=== PATIENT | female | born 1950 | race American Indian/Alaskan Native ===

== ENCOUNTER 2021-03-19 09:48 | Day surgery (SDC) | payer MEDICARE, MEDICAID, SELFPAY ==
--- NOTE | 2021-03-15 08:49 | MHC.SHP ---
Pre-Procedural Eval Section A The patient is an INPATIENT: No The History & Physical has been completed within 30 days and I have reviewed it.: Yes Section B Chief Complaint: cataract Plan Diagnosis/Plan: Unchanged I have reviewed the history and physical and performed a pertinent physical examination on my patient. No changes have occurred unless specified.
[2021-03-15 14:31] VITALS: BMI 29.5
--- NOTE | 2021-03-16 13:48 | HO.ANESPROP2 ---
Documented by User: Sylvie Rasheed 03/16/21 13:49 HPI - Anesthesia Eval Consult details Narrative: 71yo F for Left Cataract Extraction IOL Insertion PCP cleared No previous cataract on record [facility] Past Medical History Medical History Anxiety COVID-19 vaccine series completed Elevated cholesterol History of CVA (cerebrovascular accident) Surgical History Surgical History History of right hip replacement Hx of colonoscopy Hx of detached retina repair Hx of hysterectomy Social History Social History Smoking Status: Former smoker Are you DNR?: No Advance Directives: No Advance Directives Information Provided: No Advance Directives on File: No Meds Allergies Allergy/AdvReac Type Severity Reaction Status Date / Time codeine Allergy Severe Anaphylaxis Verified 03/19/21 10:23 Sulfa (Sulfonamide Allergy Severe Itching, Verified 03/19/21 10:23 Antibiotics) rash gabapentin Allergy Intermediate Rash Verified 03/19/21 10:23 Home Medications Medication Instructions Recorded Confirmed Last Taken Type atorvastatin 1 tab PO DAILY 03/15/21 03/15/21 Unknown History calcium carbonate-vitamin D3 1 tab PO DAILY 03/15/21 03/15/21 Unknown History [Calcium + D] escitalopram oxalate 1 tab PO DAILY 03/15/21 03/15/21 Unknown History multivitamin 1 tab PO DAILY 03/15/21 03/15/21 Unknown History Exam Exam Date and Time: March 16, 2021 1348 Height,Weight and Vital Signs: Height 5 ft 4 in Weight 78.018 kg Assessment and Plan Assessment Anesthesia Assessment: Chart Reviewed Documented by User: Nohemi Ponce 03/19/21 10:26 [facility] Past Medical History Medical History Anxiety COVID-19 vaccine series completed Elevated cholesterol History of CVA (cerebrovascular accident) Surgical History Surgical History History of right hip replacement Hx of colonoscopy Hx of detached retina repair Hx of hysterectomy Social History Social History Smoking Status: Former smoker Are you DNR?: No Advance Directives: No Advance Directives Information Provided: No Advance Directives on File: No Meds Allergies Allergy/AdvReac Type Severity Reaction Status Date / Time codeine Allergy Severe Anaphylaxis Verified 03/19/21 10:23 Sulfa (Sulfonamide Allergy Severe Itching, Verified 03/19/21 10:23 Antibiotics) rash gabapentin Allergy Intermediate Rash Verified 03/19/21 10:23 Home Medications Medication Instructions Recorded Confirmed Last Taken Type atorvastatin 1 tab PO DAILY 03/15/21 03/15/21 Unknown History calcium carbonate-vitamin D3 1 tab PO DAILY 03/15/21 03/15/21 Unknown History [Calcium + D] escitalopram oxalate 1 tab PO DAILY 03/15/21 03/15/21 Unknown History multivitamin 1 tab PO DAILY 03/15/21 03/15/21 Unknown History Exam Airway Mallampati Class: II TM Dist: >3cm Neck ROM: Full Loose/Missing/Broken Teeth: No Heart: RRR Lungs: CTA Assessment and Plan Assessment Anesthesia Assessment: Anesthesia Plan Discussed and Chart Reviewed Final Anesthetic Review NPO: Yes ASA Class: II Final Preanesthetic Review: Meds/Allgs Chart Reviewed, Consent Obtained/Reviewed and Anes Risks/Benef Reviewed Patient Risk: Low Procedure Risk: Low Anesthetic Plan Anesthetic Plan: MAC: Disposition: Standard PACU
[2021-03-19 10:30] VITALS: BP 116/67; PULSE 68; RESP 18; TEMP 36.8; O2SAT 98
[2021-03-19] MEDS: Lactated Ringers 500 ML 50 ML IV (10:44)
[2021-03-19] MEDS: Tetracaine HCl/PF 0.5% Oph Sol 4 ML DROPS 1 DROP EYE-LEFT (10:44)
[2021-03-19] MEDS: Tropicamide 1 % Ophth Sol 3 ML BTL 1 DROP EYE-LEFT ×3 (10:46→10:52)
[2021-03-19] MEDS: Phenylephrine HCL 2.5% Oph SoL 2 ML BOTTLE 1 DROP EYE-LEFT ×3 (10:48→10:54)
--- NOTE | 2021-03-19 11:19 | HO.PNOPHT ---
Ophthalmology Procedure Procedure Date of Service: 03/19/21 Ophthalmology Viscoelastic: Healon Duet Dual Pack Pro Ophthalmology Lenses: TECJOANNA [id number] (24.5) Procedure Notes: PREOPERATIVE DIAGNOSIS: Decreased visual acuity left eye secondary to cataract POSTOPERATIVE DIAGNOSIS: Same PROCEDURE: Left cataract extraction with intraocular lens insertion SURGEON: Kaleb Melchor M.D. ANESTHESIA: Topical/MAC ESTIMATED BLOOD LOSS: None COMPLICATIONS: None After obtaining informed consent, the patient was brought to the operation room suite and placed in the supine position. After adequate sedation per anesthesia, topical drops of Tetracaine were given to the left eye. The eye was then prepped and draped in the usual sterile fashion. The operating room microscope was then positioned over the operative eye and a lid speculum placed. A paracentesis was created. Viscoelastic was then instilled into the anterior chamber. A three plane incision was then created temporally, utilizing a 2.85 mm keratome. Capsulotomy forceps were then utilized to create a circular tear capsulotomy. Hydrodissection and hydrodelineation were carried out until adequate mobilization of the nucleus occurred. Phacoemulsification was then utilized to remove the dense central nucleus followed by removal of the cortical material utilizing the automated aspiration irrigation unit. Viscoat elastic was instilled into the posterior capsular bag followed by placement of a posterior chamber intraocular lens without difficulty. The residual Viscoat elastic was then removed utilizing the automated IA machine. The wound was check and found to be watertight. The patient tolerated the procedure well and the lid speculum was removed. Intracameral injection of Vigamox 0.1 mL followed by a subtenon injection of Kenalog-40 0.2 mL were administered. The patient will be seen in the a.m.
[2021-03-19 11:44] VITALS: BP 130/64; PULSE 68; RESP 16; TEMP 36.7; O2SAT 96
== END 2021-03-19 12:05 | disposition home or self-care (01) ==
PROVIDERS: PCP Internal Medicine Geriatric Medicine; Visit Provider Ophthalmology
PROC: (CPT 66985; principal; 2021-03-19 12:10)
DX: H25.12 Age-related nuclear cataract, left eye (principal); H54.7 Unspecified visual loss; H35.3112 Nonexudative age-related macular degeneration, right eye, intermediate dry stage; H35.3121 Nonexudative age-related macular degeneration, left eye, early dry stage; H31.002 Unspecified chorioretinal scars, left eye; E78.00 Pure hypercholesterolemia, unspecified; F32.9 Major depressive disorder, single episode, unspecified; I69.911 Memory deficit following unspecified cerebrovascular disease; Z79.899 Other long term (current) drug therapy; Z96.641 Presence of right artificial hip joint; Z88.2 Allergy status to sulfonamides; Z88.8 Allergy status to other drugs, medicaments and biological substances; Z87.891 Personal history of nicotine dependence
CPT/HCPCS: 66984; J2250; J3010; J3300; V2632

== ENCOUNTER 2021-04-09 06:13 | Day surgery (SDC) | payer MEDICARE, MEDICAID, SELFPAY ==
[2021-03-15 14:32] VITALS: BMI 29.5
--- NOTE | 2021-04-04 13:26 | MHC.SHP ---
Pre-Procedural Eval Section A The patient is an INPATIENT: No The History & Physical has been completed within 30 days and I have reviewed it.: Yes Section B Chief Complaint: Cataract Right Eye Allergies: Allergies Allergy/AdvReac Type Severity Reaction Status Date / Time codeine Allergy Severe Anaphylaxis Verified 03/19/21 10:23 Sulfa (Sulfonamide Allergy Severe Itching, Verified 03/19/21 10:23 Antibiotics) rash gabapentin Allergy Intermediate Rash Verified 03/19/21 10:23 Plan Diagnosis/Plan: Unchanged I have reviewed the history and physical and performed a pertinent physical examination on my patient. No changes have occurred unless specified.
--- NOTE | 2021-04-06 09:06 | HO.ANESPROP2 ---
Documented by User: Sylvei Rasheed 04/06/21 09:07 HPI - Anesthesia Eval Consult details Narrative: 71yo F for Right Cataract Extraction IOL Insertion PCP cleared Left eye 03/19/21: Fent 50, Midaz 1 [facility] Past Medical History Medical History Anxiety COVID-19 vaccine series completed Elevated cholesterol History of CVA (cerebrovascular accident) Surgical History Surgical History History of right hip replacement Hx of colonoscopy Hx of detached retina repair Hx of hysterectomy Social History Social History Are you DNR?: No Advance Directives: No Advance Directives Information Provided: No Advance Directives on File: No Meds Allergies Allergy/AdvReac Type Severity Reaction Status Date / Time codeine Allergy Severe Anaphylaxis Verified 04/09/21 07:01 Sulfa (Sulfonamide Allergy Severe Itching, Verified 04/09/21 07:01 Antibiotics) rash gabapentin Allergy Intermediate Rash Verified 04/09/21 07:01 Home Medications Medication Instructions Recorded Confirmed Last Taken Type atorvastatin 1 tab PO DAILY 03/15/21 03/15/21 Unknown History calcium carbonate-vitamin D3 1 tab PO DAILY 03/15/21 03/15/21 Unknown History [Calcium + D] escitalopram oxalate 1 tab PO DAILY 03/15/21 03/15/21 Unknown History multivitamin 1 tab PO DAILY 03/15/21 03/15/21 Unknown History Exam Exam Date and Time: April 06, 2021 0906 Height,Weight and Vital Signs: Height 5 ft 4 in Weight 78.018 kg Assessment and Plan Assessment Anesthesia Assessment: Chart Reviewed Documented by User: Mukund Babb 04/09/21 07:09 [facility] Past Medical History Medical History Anxiety COVID-19 vaccine series completed Elevated cholesterol History of CVA (cerebrovascular accident) Surgical History Surgical History History of right hip replacement Hx of colonoscopy Hx of detached retina repair Hx of hysterectomy Social History Social History Are you DNR?: No Advance Directives: No Advance Directives Information Provided: No Advance Directives on File: No Meds Allergies Allergy/AdvReac Type Severity Reaction Status Date / Time codeine Allergy Severe Anaphylaxis Verified 04/09/21 07:01 Sulfa (Sulfonamide Allergy Severe Itching, Verified 04/09/21 07:01 Antibiotics) rash gabapentin Allergy Intermediate Rash Verified 04/09/21 07:01 Home Medications Medication Instructions Recorded Confirmed Last Taken Type atorvastatin 1 tab PO DAILY 03/15/21 03/15/21 Unknown History calcium carbonate-vitamin D3 1 tab PO DAILY 03/15/21 03/15/21 Unknown History [Calcium + D] escitalopram oxalate 1 tab PO DAILY 03/15/21 03/15/21 Unknown History multivitamin 1 tab PO DAILY 03/15/21 03/15/21 Unknown History Exam Airway Mallampati Class: II TM Dist: >3cm Neck ROM: Full Loose/Missing/Broken Teeth: No Heart: [id number] Lungs: cta b/l Assessment and Plan Assessment Anesthesia Assessment: Anesthesia Plan Discussed, PAT Visit and Chart Reviewed Final Anesthetic Review NPO: Yes ASA Class: III Final Preanesthetic Review: No Changes in Pt Med Stat, Meds/Allgs Chart Reviewed, Consent Obtained/Reviewed and Anes Risks/Benef Reviewed Patient Risk: Low Procedure Risk: Low Assessment/Block/Sedation in SS: Assess/Block/Sedation-SS Anesthetic Plan Anesthetic Plan: MAC: and Agree w/ Assess. and Plan Disposition: Standard PACU
[2021-04-09 07:02] VITALS: BP 127/71; PULSE 76; RESP 16; TEMP 36.5; O2SAT 99
[2021-04-09] MEDS: Tetracaine HCl/PF 0.5% Oph Sol 4 ML DROPS 1 DROP EYE-RIGHT (07:15)
[2021-04-09] MEDS: Lactated Ringers 500 ML 50 ML IV (07:17)
[2021-04-09] MEDS: Tropicamide 1 % Ophth Sol 3 ML BTL 1 DROP EYE-RIGHT ×3 (07:20→07:29)
[2021-04-09] MEDS: Phenylephrine HCL 2.5% Oph SoL 2 ML BOTTLE 1 DROP EYE-RIGHT ×3 (07:23→07:31)
--- NOTE | 2021-04-09 08:18 | HO.PNOPHT ---
Ophthalmology Procedure Procedure Date of Service: 04/09/21 Ophthalmology Viscoelastic: Healon Duet Dual Pack Pro Ophthalmology Lenses: TECNIS [id number] (24.5) Procedure Notes: PREOPERATIVE DIAGNOSIS: Decreased visual acuity right eye secondary to cataract POSTOPERATIVE DIAGNOSIS: Same PROCEDURE: Right cataract extraction with intraocular lens insertion SURGEON: Kaleb Melchor M.D. ANESTHESIA: Topical/MAC ESTIMATED BLOOD LOSS: None COMPLICATIONS: None After obtaining informed consent, the patient was brought to the operating room suite and placed in the supine position. After adequate sedation per anesthesia, topical drops of Tetracaine were given to the right eye. The eye was then prepped and draped in the usual sterile fashion. The operating room microscope was then positioned over the operative eye and a lid speculum placed. A paracentesis was created. Viscoelastic was then instilled into the anterior chamber. A three plane incision was then created temporally, utilizing a 2.85 mm keratome. Capsulotomy forceps were then utilized to create a circular tear capsulotomy. Hydrodissection and hydrodelineation were carried out until adequate mobilization of the nucleus occurred. Phacoemulsification was then utilized to remove the dense central nucleus followed by removal of the cortical material utilizing the automated aspiration irrigation unit. Viscoelastic was instilled into the posterior capsular bag followed by placement of a posterior chamber intraocular lens without difficulty. The residual Viscoelastic was then removed utilizing the automated IA machine. The wound was checked and found to be watertight. The patient tolerated the procedure well and the lid speculum was removed. Intracameral injection of Vigamox 0.1 mL followed by a subtenon injection of Kenalog-40 0.2 mL were administered. The patient will be seen in the a.m.
[2021-04-09 08:37] VITALS: BP 123/66; PULSE 65; RESP 16; TEMP 36.1; O2SAT 97
== END 2021-04-09 09:07 | disposition home or self-care (01) ==
PROVIDERS: PCP Internal Medicine Geriatric Medicine; Visit Provider Ophthalmology
PROC: (CPT 66985; principal; 2021-04-09 08:50)
DX: H25.11 Age-related nuclear cataract, right eye (principal); Z88.0 Allergy status to penicillin; Z88.5 Allergy status to narcotic agent; Z88.8 Allergy status to other drugs, medicaments and biological substances
CPT/HCPCS: 66984; J2250; J3300; V2632